=== PATIENT | female | born 1970 | race Caucasian/White ===

== ENCOUNTER 2018-09-29 07:24 | Outpatient (CLI) | payer MEDICARE, SELFPAY ==
[2018-09-29 08:54] LABS: Abs Immature Grans 0.02 k/cumm (0.0-0.09); Absolute Basophil Count 0.03 k/cumm (0.0-0.2); Absolute Lymphocyte Count 2.07 k/cumm (1.2-3.4); Absolute Monocyte Count 0.59 k/cumm (0.11-0.7); Absolute Neutrophil Count 3.94 k/cumm (1.2-6.7); Basophils % 0.4; Eosinophils % 2.9; HGB 15.3 g/dL (12.0-15.5); Immature Grans % 0.3; Lymphocytes % 30.2; Mean Corp. HGB Concentration 31.9 g/dL (32.0-36.0); Mean Corpuscular Hemoglobin 29.1 pg (27.0-33.0); Mean Corpuscular Volume 91.3 fL (80-95); Monocytes % 8.6; Neutrophils % 57.6; Platelet Count 226 x1000/uL (130-400); RBC 5.26 m/cumm (4.00-5.20); RBC Distribution Width 13.4 % (11.7-14.6); White Blood Cell Count 6.85 k/cumm (4.4-10.8)
[2018-09-29 10:21] LABS: ALT 34 U/L (12-78); AST 17 U/L (15-37); Albumin 3.6 g/dL (3.4-5.0); Alkaline Phosphatase 82 U/L (46-116); Amylase 40 U/L (25-115); Anion Gap 7.9 mmol/L (3-11); BUN 17 mg/dL (7-18); Bilirubin, Total 0.4 mg/dL (0.2-1.0); CO2 29.1 mmol/L (21.0-32.0); CREATININE 0.74 mg/dL (0.55-1.02); Calcium 9.1 mg/dL (8.5-10.1); Chloride 104 mmol/L (98-107); Glucose 91 mg/dL (70-100); Lipase 158 U/L (73-393); Potassium 4.6 mmol/L (3.5-5.1); Sodium 141 mmol/L (136-145); Total Protein 7.4 g/dL (6.4-8.2)
[2018-09-30 11:22] LABS: CA 125 6 U/mL (0-30)
== END 2018-09-29 07:44 ==
PROVIDERS: PCP Internal Medicine; Visit Provider Nurse Practitioner
DX: R63.4 Abnormal weight loss (principal); R19.07 Generalized intra-abdominal and pelvic swelling, mass and lump; R10.84 Generalized abdominal pain
CPT/HCPCS: 36415; 80053; 83690; 86304; 82150; 84443; 85025

== ENCOUNTER → 2018-10-21 00:29 | Outpatient (CLI) | payer MEDICARE, SELFPAY ==
--- NOTE | 2018-10-21 08:25 | DI.CT_ITS ---
SYMPTOMS/DIAGNOSIS: NAUSEA, VOMITING, ABDOMINAL BLOATING, R11.2, R14.0, R63.4, R10.84 CT OF THE ABDOMEN AND PELVIS: Comparison is made with April,. Images were performed from the lung bases through the ischial tuberosities after IV and oral contrast. The oral contrast extends to the level of the cecum and ascending colon. Scattered colonic diverticula are seen. There is no evidence of diverticulitis or colitis. There is no small bowel dilatation. The appendix appears normal. There is no free air or free fluid. There has been a previous abdominal wall repair. The liver, gallbladder, spleen, pancreas, adrenals and kidneys are unremarkable. The uterus has a somewhat lobulated contour consistent with small fibroids. The ovaries are unremarkable. The urinary bladder is mildly distended and unremarkable. The aorta is normal in diameter. No suspicious bony abnormalities are seen. IMPRESSION: No acute abnormality is seen. There has been no significant change from the previous exam.
[2018-10-21] MEDS: Breeza Beverage 473 ML BTL PO (09:36)
[2018-10-21] MEDS: Omnipaque 350 MG/ML 100 ML BTL IJ (09:37)
[2018-10-21] MEDS: Omnipaque 350 MG/ML 50 ML BTL IJ (09:37)
== END ==
PROVIDERS: PCP Internal Medicine; Visit Provider Nurse Practitioner
DX: R11.2 Nausea with vomiting, unspecified (principal); R14.0 Abdominal distension (gaseous); R10.84 Generalized abdominal pain; D25.9 Leiomyoma of uterus, unspecified; N32.89 Other specified disorders of bladder
CPT/HCPCS: 74177; J3490; Q9967

== ENCOUNTER 2018-10-24 13:44 | Outpatient (REF) | payer MEDICARE, SELFPAY ==
--- NOTE | 2018-10-24 12:00 | PAPFT_PTH ---
PATIENT: Kasey Cervantes LOC: [facility] U#:[id number] AGE/SX: 48/F ROOM: RE10/24/[address]: Anastacia Reynolds NP : 1970 BED: DIS: 10/24/2018 SPEC #: [id number] RECD: 10/24/18 18:06 STATUS: GOPI MOREL[place] #: [id number] JO: 10/24/18 12:[address]: Anastacia Reynolds NP DEPT: [facility] Cytology RECD BY: Anita Graff ENTERED: 10/24/18 18:06 SP TYPE: PAPFT OTHR DR: Marvin Becerra Tissues: 1 - CX/ENDOCX FOR PAP SMEARS Procedures: PAP THIN PREP/UVM Screening HPV DNA PROBE Comments: [id number]
== END 2018-10-24 14:04 ==
LOC: LBN 13:44
PROVIDERS: PCP Internal Medicine; Visit Provider Nurse Practitioner Women's Health
DX: Z12.4 Encounter for screening for malignant neoplasm of cervix (principal); Z11.51 Encounter for screening for human papillomavirus (HPV)
CPT/HCPCS: 88142; 87624

== ENCOUNTER 2018-11-05 00:13 | Outpatient (CLI) | payer MEDICARE, SELFPAY ==
--- NOTE | 2018-11-05 15:00 | DI.MAMMO_ITS ---
SYMPTOMS/DIAGNOSIS: ROUTINE SCREENING MAMMOGRAMS: Mammograms were interpreted according to the usual protocol including computer analysis with CAD system, tomosynthesis and C view imaging. There are small well-circumscribed bilateral nodules. There is no dominant mass. There are no suspicious calcifications. SUMMARY: Bilateral well-circumscribed nodular densities most certainly represent intramammary lymph nodes. Allowing for differences in positioning and technique, there has been no definite interval change when compared with the prior examination. A repeat mammographic examination in six months is recommended for further review. Category 1. Breast density category B. MQSA ASSESSMENT OF FINDINGS: Negative. Category 1. Patient will receive a letter notifying them of these results. BI-RADS category B. There are scattered areas of fibroglandular density.
--- NOTE | 2018-11-05 15:15 | DI.US_ITS ---
SYMPTOMS/DIAGNOSIS: PELVIC PAIN, FIBROIDS, R10.2 PELVIC ULTRASOUND: Pelvic ultrasound was performed transabdominally and transvaginally. Please see the accompanying data sheet for measurements of the pelvic structures. The ovaries are nonvisualized. No free fluid identified in the cul-de-sac. Myometrium is unremarkable in appearance. There is a 12 mm in diameter nabothian cyst. Endometrial stripe is about 5 mm in thickness and appears fairly homogeneous. Limited scanning of the kidneys is unremarkable. CONCLUSION: Essentially negative pelvic ultrasound. Ovaries were not visualized on this examination.
== END 2018-11-05 00:33 ==
PROVIDERS: PCP Internal Medicine; Visit Provider Nurse Practitioner Women's Health
DX: Z12.31 Encounter for screening mammogram for malignant neoplasm of breast (principal); N60.81 Other benign mammary dysplasias of right breast; N60.82 Other benign mammary dysplasias of left breast; R10.2 Pelvic and perineal pain
CPT/HCPCS: 77063; 77067; 76830; 76856

== ENCOUNTER 2019-01-12 11:59 | Emergency (ER) | payer MEDICARE, SELFPAY ==
[2019-01-12 12:03] VITALS: BP 161/95; PULSE 78; RESP 18; TEMP 36.7; O2SAT 100
[2019-01-12 12:53] LABS: Abs Immature Grans 0.01 k/cumm (0.0-0.09); Absolute Basophil Count 0.03 k/cumm (0.0-0.2); Absolute Eosinophil Count 0.19 k/cumm (0.0-0.7); Absolute Lymphocyte Count 2.37 k/cumm (1.2-3.4); Absolute Monocyte Count 0.65 k/cumm (0.11-0.7); Absolute Neutrophil Count 4.01 k/cumm (1.2-6.7); Basophils % 0.4; Eosinophils % 2.6; HGB 15.1 g/dL (12.0-15.5); Immature Grans % 0.1; Lymphocytes % 32.6; Mean Corp. HGB Concentration 32.8 g/dL (32.0-36.0); Mean Corpuscular Hemoglobin 30.3 pg (27.0-33.0); Mean Corpuscular Volume 92.2 fL (80-95); Mean Platelet Volume 10.1 fL (8.0-11.0); Neutrophils % 55.3; Platelet Count 244 x1000/uL (130-400); RBC 4.99 m/cumm (4.00-5.20); RBC Distribution Width 12.9 % (11.7-14.6); White Blood Cell Count 7.26 k/cumm (4.4-10.8)
[2019-01-12 13:04] LABS: ALT 22 U/L (12-78); AST 15 U/L (15-37); Albumin 3.6 g/dL (3.4-5.0); Alkaline Phosphatase 76 U/L (46-116); Anion Gap 7.8 mmol/L (3-11); BUN 12 mg/dL (7-18); Bilirubin, Total 0.3 mg/dL (0.2-1.0); CO2 29.2 mmol/L (21.0-32.0); CREATININE 0.72 mg/dL (0.55-1.02); Calcium 9.1 mg/dL (8.5-10.1); Chloride 103 mmol/L (98-107); Glucose 98 mg/dL (70-100); Potassium 4.3 mmol/L (3.5-5.1); Sodium 140 mmol/L (136-145); Total Protein 7.9 g/dL (6.4-8.2)
[2019-01-12 13:09] LABS: Bilirubin Small (Negative); Blood Large (Negative); Clarity Sl Cloudy; Glucose Negative (Negative); Ketones Trace mg/dL (Negative); Leukocyte Esterase Negative (Negative); Nitrite Negative (Negative); Specific Gravity 1.025 (1.005-1.025)
[2019-01-12 13:20] LABS: Bacteria Negative HPF (Negative); Crystals Negative HPF (Negative); Epithelial Cells Rare HPF (Negative); Other Cells Negative (Negative); RBC >50 (0-2); WBC 0-2 HPF (0-5)
[2019-01-12] MEDS: MORPHine 10 MG/ML VIAL 4 MG IVP (13:20)
[2019-01-12 13:21] LABS: Casts Negative LPF (Negative); Mucus Trace (Negative)
[2019-01-12] MEDS: Ondansetron 4 MG/2 ML VIAL (13:27)
[2019-01-12] MEDS: Omnipaque 350 MG/ML 100 ML BTL IJ (13:51)
--- NOTE | 2019-01-12 13:52 | DI.CT_ITS ---
SYMPTOMS/DIAGNOSIS: RIGHT LOWER QUADRANT ABDOMINAL PAIN, VAGINAL BLEEDING, WEIGHT LOSS CT OF THE ABDOMEN AND PELVIS: Comparison is made with October,. Images were performed from the lung bases through the ischial tuberosities after IV and without oral contrast. The lung bases are clear. The heart size is normal. The liver shows mild fatty infiltration. The gallbladder, spleen, pancreas, kidneys and adrenals are unremarkable. The bladder is mildly distended and unremarkable. The uterus shows a few small fibroids. The ovaries are normal in size. There is no bowel dilatation or inflammatory change. The appendix appears normal. There are scattered diverticula. There is no evidence of diverticulitis, free air or free fluid. Mesh is seen in the anterior abdominal wall related to previous hernia repair. No recurrent hernia is seen. IMPRESSION: Diverticulosis without evidence of diverticulitis. No acute abnormality.
--- NOTE | 2019-01-12 15:10 | DI.US_ITS ---
SYMPTOMS/DIAGNOSIS: VAGINAL BLEEDING PELVIC ULTRASOUND: Transabdominal and transvaginal exams were performed. Comparison is made with CT scan dated January,. The transabdominal images are quite limited due to the patient's body habitus. The fundus of the uterus is not well seen on the transvaginal images. The left ovary was unable to be visualized. It was unremarkable by CT. The uterus measures 9.4 x 4.5 x 5.4 cm. No fibroids are identified. There is a question of a fundal fibroid on the abdominal and pelvic CT. The endometrial stripe appears normal in thickness at 7.1 cm. No focal endometrial abnormality is visible. The right ovary is normal in size and shows two small adjacent cysts. There is no free fluid or hydronephrosis. IMPRESSION: Limited exam. The left ovary was not visualized. Small right ovarian cyst is seen.
--- NOTE | 2019-01-12 16:21 | W.ED.GENAD ---
Discharge Plan Disposition Patient Disposition: HOME Condition: Good Discharge Details Chief Complaint: Abd Prob Clinical Impression: Abnormal vaginal bleeding Reason For Visit: abd pain / vaginal bleeding Primary Care Provider: Marvin Becerra ED Provider: Juma Ramirez Home Meds and New Rx's Prescriptions: No Action ranitidine HCl 300 mg tablet 300 mg PO DAILY RF: 0 cannabidiol (CBD) extract 100 mg/mL solution PO DAILY RF: 0 multivitamin [Daily Multi-Vitamin] tablet 1 tab PO DAILY RF: 0 loratadine [Claritin] 10 MG tablet 10 mg PO DAILY RF: 0 albuterol sulfate 8.5 GM HFA aerosol inhaler 2 puff Inhalation Q6H PRN PRNQty: 1 RF: 0 fluoxetine 20 MG capsule 20 mg PO DAILY RF: 0 naproxen sodium [Aleve] 220 mg Tablet 440 mg RF: 0 Discharge Instructions Instructions: Dysfunctional Uterine Bleeding (ED) Additional Instructions: Please take ibuprofen 800 mg every 6 hours for your pain. Please follow-up tomorrow morning with your obstetrics shift supervisor. If you notice any worsening of your symptoms, or any new symptoms such as vomiting, diarrhea, fever, chills, shortness of breath, chest pain, numbness, weakness, or fainting , please return immediately to the emergency department for reevaluation. Please follow up with your primary care provider as soon as possible for reassessment and reevaluation. As always, it was a pleasure participating in your medical care today. Referrals: Marvin Becerra MD [Primary Care Provider] - Discharge Data Discharge Date/Time-TO BE ENTERED AT DEPARTURE: 01/12/19 16:39 Medical Decision Making This is a pleasant 48-year-old female with a past medical history of fibromyalgia, who presents today for evaluation of vaginal bleeding and mild abdominal pelvic pain. Symptoms have been present for the last 4 days, and the bleeding started last night. Physical exam demonstrates mild suprapubic tenderness, and mild abdominal tenderness. With the patient's vaginal bleeding or certainly concern for malignancy. Laboratory workup demonstrates stable hemoglobin, reassuring vital signs, CT scan demonstrates no acute process. Ovaries are normal in size, transvaginal ultrasound demonstrates limited exam, no fibroids, questionable fundal fibroid, and a normal endometrial stripe. No other significant abnormalities. Patient's pain is notably improved with Toradol. We did contact the obstetrics shift supervisor conductor/engineer, and discussed the case with her. She would like the patient to follow-up tomorrow morning at their clinic for further evaluation and potential biopsy. With reassuring vital signs, stable hemoglobin, no other M d-dimer imaging, I feel that this is reasonable. We will hold off on estrogen until she is seen by her obstetrics shift supervisor tomorrow I have extensively reviewed the treatment plan and discharge instructions with the patient and their family. I have addressed all patient concerns at this time. The patient and family was made aware of what symptoms to monitor for that would warrant a return to the emergency department. Discussed the plan with the patient and family, they demonstrate verbal understanding and agreement with our assessment and plan at this time. . CT OF THE ABDOMEN AND PELVIS: Comparison is made with October,. Images were performed from the lung bases through the ischial tuberosities after IV and without oral contrast. The lung bases are clear. The heart size is normal. The liver shows mild fatty infiltration. The gallbladder, spleen, pancreas, kidneys and adrenals are unremarkable. The bladder is mildly distended and unremarkable. The uterus shows a few small fibroids. The ovaries are normal in size. There is no bowel dilatation or inflammatory change. The appendix appears normal. There are scattered diverticula. There is no evidence of diverticulitis, free air or free fluid. Mesh is seen in the anterior abdominal wall related to previous hernia repair. No recurrent hernia is seen. IMPRESSION: Diverticulosis without evidence of diverticulitis. No acute abnormality. PELVIC ULTRASOUND: Transabdominal and transvaginal exams were performed. Comparison is made with CT scan dated January,. The transabdominal images are quite limited due to the patient's body habitus. The fundus of the uterus is not well seen on the transvaginal images. The left ovary was unable to be visualized. It was unremarkable by CT. The uterus measures 9.4 x 4.5 x 5.4 cm. No fibroids are identified. There is a question of a fundal fibroid on the abdominal and pelvic CT. The endometrial stripe appears normal in thickness at 7.1 cm. No focal endometrial abnormality is visible. The right ovary is normal in size and shows two small adjacent cysts. There is no free fluid or hydronephrosis. IMPRESSION: Limited exam. The left ovary was not visualized. Small right ovarian cyst is seen. HPI General Date/Time Provider Initiated Documentation: 01/12/19 12:00. HPI Narrative: This is a 48-year-old female with a past medical history of PE/DVT, tubal ligation, fibromyalgia, who presents today for evaluation of vaginal bleeding. The patient states that for the last 4 days she has had mild right lower quadrant abdominal pain, as well as pelvic pain. However starting last night the patient's pain worsened, and she started developing notable vaginal bleeding. She describes the pain as a crampy-like sensation. Pain is located in the suprapubic region, no significant radiation at this time. She denies any vomiting, diarrhea, chest pain or shortness of breath. She does admit to a 60 pound weight loss over the last year, which she states is unintentional. She does admit to a tubal ligation in the past, but denies any other significant OB/gynecologic surgery. Patient has no other complaints at this time. Related Data Home Medications Medication Instructions Recorded Confirmed albuterol sulfate 2 puff INHALATION Q6H PRN PRN #1 01/16/15 01/12/19 hfa.aer.ad loratadine [Claritin] 10 mg PO DAILY 01/16/15 01/12/19 fluoxetine 20 mg PO DAILY 07/27/15 01/12/19 cannabidiol (CBD) 100 mg/mL oral mg PO DAILY ml 10/24/18 11/26/18 solution ranitidine 300 mg tablet 300 mg PO DAILY 10/24/18 01/12/19 multivitamin tablet 1 tab PO DAILY 11/26/18 01/12/19 naproxen sodium [Aleve] 440 mg 01/12/19 Previous Rx's Medication Instructions Recorded albuterol sulfate 2 puff INHALATION Q6H PRN PRN #1 01/16/15 hfa.aer.ad Allergies Allergy/AdvReac Type Severity Reaction Status Date / Time acetaminophen [From Tylenol] AdvReac Mild Nausea Unverified 01/12/19 12:09 clonazepam [From Klonopin] AdvReac Dizziness/L Unverified 01/12/19 12:09 ightheade codeine AdvReac Nausea Unverified 01/12/19 12:09 gabapentin AdvReac Dizziness/L Unverified 01/12/19 12:09 ightheade General Stated Complaint: Abd Prob DAVID: 3 Review of Systems Review of Systems All systems reviewed & are unremarkable except as noted in HPI and below PFSH Social History what type of physical activity do you participate in: none Smoking and Tabacco status: Former Tobacco Use alcohol intake: current alcohol intake frequency: a few times a week substance use type: marijuana Female Reproductive History Menstrual control method: permanent sterilization History History 2 Para 2 Hx # Term Pregnancies Multiple births Hx # Pregnancies Ectopic pregnancies AB induced Hx Number of Living Children AB spontaneous Exam Narrative Exam Narrative: 1.Const: Well-nourished, mildly obese, 2.Eyes: PERRL, no conjunctival injection, and symmetrical lids. 3.ENT: Atraumatic external nose and ears. Moist MM. Neck: Symmetric, trachea midline, No thyromegaly. 4.CVS: +S1/S2, No murmurs or gallops. Peripheral pulses 2+ and equal in all extremities. Brisk capillary refill in all extremities. 5.RESP: Unlabored respiratory effort. Clear to auscultation bilaterally. No wheezes rales or rhonchi 6.GI: Soft, Nontender/Nondistended, No hepatosplenomegaly. No guarding or rebound. Mild suprapubic tenderness. No guarding or rebound. Pelvic exam was performed with female nurse Elisabet at bedside, pelvic exam was difficult to visualize the cervix secondary to the length of her vaginal vault, however palpation demonstrates notable firm component on the left lateral aspect. No cervical motion tenderness. Notable blood in the vaginal vault. No significant pain on bimanual exam. 7.MSK: Normocephalic/Atraumatic, Extremities w/o deformity or ttp No cyanosis or clubbing, Normal movement of all extremities 8.Skin: Warm, Dry. No rashes or lesions. 9.Neuro: health center manager II-XII grossly intact. Sensation grossly intact, no focal neurologic deficits. 10.Psych: (AAO) x3. Appropriate mood and affect Course Vital Signs Temperature 36.7 C 01/12/19 12:03 Pulse 78 01/12/19 12:03 Respiratory Rate 18 01/12/19 12:03 Blood Pressure 161/95 H 01/12/19 12:03 Pulse Oximetry 100 01/12/19 12:03 Temperature 36.7 C 01/12/19 12:03 Pulse 78 01/12/19 12:03 Respiratory Rate 18 01/12/19 12:03 Respiratory Effort 01/12/19 12:08 Blood Pressure 161/95 H 01/12/19 12:03 Pulse Oximetry 100 01/12/19 12:03 Oxygen Delivery Method Room Air 01/12/19 12:03 Oxygen Flow Rate 0 01/12/19 12:03 Pain Level 10 01/12/19 12:03 Lab/Test Results Lab/Test Results: Laboratory Tests Range/Units 01/12/19 01/12/19 01/12/19 12:45 12:45 12:50 WBC (4.4-10.8) k/cumm 7.26 RBC (4.00-5.20) m/cumm 4.99 Hgb (12.0-15.5) g/dL 15.1 Hct (36.0-46.0) % 46.0 MCV (80-95) fL 92.2 MCH (27.0-33.0) pg 30.3 MCHC (32.0-36.0) g/dL 32.8 RDW (11.7-14.6) % 12.9 Plt Count (130-400) x1000/uL 244 MPV (8.0-11.0) fL 10.1 Immature Gran % 0.1 Neutrophils % 55.3 Lymphocytes % 32.6 Monocytes % 9.0 Eosinophils % 2.6 Basophils % 0.4 Absolute Neutrophils (1.2-6.7) k/cumm 4.01 Absolute Lymphocytes (1.2-3.4) k/cumm 2.37 Absolute Monocytes (0.11-0.7) k/cumm 0.65 Absolute Eosinophils (0.0-0.7) k/cumm 0.19 Absolute Basophils (0.0-0.2) k/cumm 0.03 Sodium (136-145) mmol/L 140 Potassium (3.5-5.1) mmol/L 4.3 Chloride (98-107) mmol/L 103 Carbon Dioxide (21.0-32.0) mmol/L 29.2 Anion Gap (3-11) mmol/L 7.8 BUN (7-18) mg/dL 12 Creatinine (0.55-1.02) mg/dL 0.72 Estimated GFR/1.73 m2 (mL/min/1.73m2) >= 60.00 Glucose (70-100) mg/dL 98 Calcium (8.5-10.1) mg/dL 9.1 Total Bilirubin (0.2-1.0) mg/dL 0.3 AST (15-37) U/L 15 ALT (12-78) U/L 22 Alkaline Phosphatase (46-116) U/L 76 Total Protein (6.4-8.2) g/dL 7.9 Albumin (3.4-5.0) g/dL 3.6 Urine Color (Yellow) Hawkins Urine Clarity Sl cloudy Urine pH (5-8) 7.0 Ur Specific [place] (1.005-1.025) 1.025 Urine Protein (Negative) mg/dL 100 H Urine Ketones (Negative) mg/dL Trace H Urine Blood (Negative) Large H Urine Nitrite (Negative) Negative Urine Bilirubin (Negative) Small H Urine Urobilinogen (Up TO 0.2) EU/dL 1.0 H Ur Leukocyte Esterase (Negative) Negative Urine RBC (0-2) >50 H Urine WBC (0-5) HPF 0-2 Ur Epithelial Cells (Negative) HPF Rare Urine Crystals (Negative) HPF Negative Urine Bacteria (Negative) HPF Negative Urine Casts (Negative) LPF Negative Urine Mucus (Negative) Trace Urine Other (Negative) Negative Ur Culture Indicated? No Urine Glucose (Negative) mg/dL Negative
[2019-01-12] MEDS: Ketorolac 30 MG/ML VIAL IVP (16:25)
[2019-01-12 18:33] VITALS: BP 130/84; PULSE 62; RESP 16; TEMP 36.7; O2SAT 94
[2019-01-12 21:21] LABS: C & S Indicated? Yes
== END 2019-01-12 16:39 | disposition home or self-care (01) ==
PROVIDERS: Emergency Provider Student in an Organized Health Care Education/Training Program; PCP Internal Medicine
DX: N93.9 Abnormal uterine and vaginal bleeding, unspecified (principal); R10.2 Pelvic and perineal pain; N83.201 Unspecified ovarian cyst, right side
CPT/HCPCS: 36415; 80053; 96374; 96375; 99285; 74177; 76830; 81003; 81015; 85025; 87086; 99284; J1885; J2270; J2405; J3490

== ENCOUNTER 2019-01-20 08:53 | Outpatient (CLI) | payer MEDICARE, SELFPAY ==
[2019-01-20 10:27] LABS: HCT 44.4 % (36.0-46.0); HGB 14.4 g/dL (12.0-15.5); Mean Corp. HGB Concentration 32.4 g/dL (32.0-36.0); Mean Corpuscular Hemoglobin 30.4 pg (27.0-33.0); Mean Corpuscular Volume 93.9 fL (80-95); Platelet Count 211 x1000/uL (130-400); RBC 4.73 m/cumm (4.00-5.20); White Blood Cell Count 7.46 k/cumm (4.4-10.8)
[2019-01-20 11:11] LABS: Anion Gap 6.7 mmol/L (3-11); BUN 21 mg/dL (7-18); CO2 30.3 mmol/L (21.0-32.0); CREATININE 0.88 mg/dL (0.55-1.02); Calcium 9.3 mg/dL (8.5-10.1); Chloride 104 mmol/L (98-107); Glucose 93 mg/dL (70-100); Potassium 4.1 mmol/L (3.5-5.1); Sodium 141 mmol/L (136-145)
== END 2019-01-20 09:13 ==
PROVIDERS: PCP Internal Medicine; Visit Provider Obstetrics & Gynecology Gynecology
DX: N93.8 Other specified abnormal uterine and vaginal bleeding (principal); Z01.818 Encounter for other preprocedural examination
CPT/HCPCS: 36415; 80048; 85027; 86850; 86900; 86901

== ENCOUNTER 2019-01-21 09:50 | Day surgery (SDC) | payer MEDICARE, SELFPAY ==
[2019-01-20 09:05] VITALS: BP 121/81; PULSE 103; RESP 18; TEMP 37.5; O2SAT 92
[2019-01-21] VITALS (7 sets, daily range): BP systolic 108–145; BP diastolic 51–90; PULSE 59–96; RESP 12–19; TEMP 36.4–36.7; O2SAT 95–99
[2019-01-21] MEDS: Lactated Ringers 1,000 ML 125 ML IV (12:13)
[2019-01-21] MEDS: Bupivacaine 0.5% Pres-Free 30 ML VIAL (12:41)
--- NOTE | 2019-01-21 12:51 | ENDOMET_PTH ---
PATIENT: Kasey Cervantes LOC: [facility] U#:[id number] AGE/SX: 48/F ROOM: RE01/21/[address]: Leti Loja : 1970 BED: DIS: 01/21/2019 SPEC #: [id number] RECD: 01/21/19 18:04 STATUS: GOPI RE #: [id number] JO: 01/21/19 12:[address]: Leti Loja DEPT: Surgical Specimen RECD BY: Anita Graff ENTERED: 01/21/19 18:05 SP TYPE: Endomet OTHR DR: Marvin Becerra Tissues: 1 - ENDOMETRIUM BX/ANN Procedures: GROSS AND MICRO LEVEL 4 Comments: [id number]
[2019-01-21] MEDS: Ketorolac 30 MG/ML VIAL IVP ×2 (13:15→13:25)
--- NOTE | 2019-01-21 13:25 | W.PM.DSUDISC ---
Discharge Plan Disposition Patient Disposition: HOME Condition: Fair Discharge Details Reason For Visit: Hysteroscopy and cervical dilation and curretage Attending Provider: Leti Loja Primary Care Provider: Marvin Becerra Home Meds and New Rx's Prescriptions: No Action ranitidine HCl 300 mg tablet 300 mg PO DAILY RF: 0 cannabidiol (CBD) extract 100 mg/mL solution 250 mg PO DAILY RF: 0 multivitamin [Daily Multi-Vitamin] tablet 1 tab PO DAILY RF: 0 oxycodone 5 mg tablet 5 mg PO Q8H MDD 3 PRN (Reason: pain) Qty: 10 RF: 0 loratadine [Claritin] 10 MG tablet 10 mg PO DAILY RF: 0 albuterol sulfate 8.5 GM HFA aerosol inhaler 2 puff Inhalation Q6H PRN PRNQty: 1 RF: 0 naproxen sodium [Aleve] 220 mg Tablet 440 mg PO BID PRN PRNRF: 0 Discharge Instructions Stand Alone Forms: [facility] Post Gynecology Surgery, Yousif Lundy (DSU) Activity:: Activity as Tolerated Shower/Bathe:: 24 hours Diet:: As Tolerated Discharge Orders Discharge Orders: Discharge Order (Routine); Ordered 01/21/19 Ordered By: Leti Loja DS: Diagnosis Discharge Diagnosis (1) Abnormal uterine bleeding (AUB): Status: Acute (2) Hx of dilation and curettage: Status: Acute (3) History of hysteroscopy: Status: Acute
--- NOTE | 2019-01-22 07:43 | W.PM.OP ---
Date of service: 01/22/19 Time of Service: 07:44 Operative Note DATE OF PROCEDURE: 01/21/19 PRE-OP DIAGNOSIS: Abnormal uterine bleeding POST-OP DIAGNOSIS: same PROCEDURE: Diagnostic hysteroscopy with uterine curettage SURGEON: Leti Loja ANESTHESIA: other (See anesthesia note in EMR) ESTIMATED BLOOD LOSS: 0 PATHOLOGY: other (Endometrial curettings to pathology) COMPLICATIONS: None Patient was transported to: PACU Patient's condition: stable Indications: 48-year-old perimenopausal female with recent episode of heavy uterine bleeding significant pain and cramping. Findings: Normal appearing uterine cavity no intracavitary filling defects. [place] appeared smooth. There was dark red blood coming from the left tubal ostia with the initial installation of normal saline. That ceased within 2-3 minutes of the hysteroscopy. Both tubal ostia appeared normal Procedure Description: Patient was taken to the operating room and she was placed in the dorsal lithotomy position in yellowfin stirrups in a neurologically neutral position. SCDs were placed timeout was performed and patient was prepped and draped in usual sterile fashion. A bivalve Graves speculum was placed into the vagina the cervix was infiltrated with 1 cc of quarter percent Marcaine without epinephrine and grasped with a single-tooth tenaculum. Paracervical block was performed at the 4 and 8:00 vaginal cervix interface bilaterally. cervix was then sequentially dilated to a maximum of 11 Estr[place]. the diagnostic hysteroscope was then placed in the vagina to the cervix into the uterine cavity with normal saline as a distention medium. The overall impression was that of a normal appearing endometrium. The h hysteroscope was removed the patient's uterus a narrow banjo curette was then used to sequentially curetted all 4 quadrants of the uterine cavity and a small amount of tissue was obtained. A second inspection of the uterine cavity with the hysteroscope was performed and the curetted sites were hemostatic. There are no detached fragments of endometrial lining present within the uterine cavity at the completion of the procedure. Instruments removed from the patient's vagina tenaculum site was hemostatic patient was placed in the dorsal supine position awakened from anesthesia and transported to recovery area in stable condition all sponge lap needle counts correct x2
== END 2019-01-21 15:23 | disposition home or self-care (01) ==
PROVIDERS: PCP Internal Medicine; Visit Provider Obstetrics & Gynecology Gynecology
PROC: 0UDB8ZZ Extraction of Endometrium, Via Natural or Artificial Opening Endoscopic (ICD-10-PCS; CPT 58558; principal; 2019-01-21 12:00)
DX: N93.9 Abnormal uterine and vaginal bleeding, unspecified (principal); N84.0 Polyp of corpus uteri
CPT/HCPCS: 58558; 88305; J1100; J2405; J3010

== ENCOUNTER 2019-01-27 15:57 | Observation (INO) | payer MEDICARE, SELFPAY ==
[2019-01-27 16:29] VITALS: BP 150/101; PULSE 74; RESP 18; TEMP 36.3; O2SAT 96
[2019-01-27 17:33] LABS: Abs Immature Grans 0.01 k/cumm (0.0-0.09); Absolute Basophil Count 0.05 k/cumm (0.0-0.2); Absolute Lymphocyte Count 2.82 k/cumm (1.2-3.4); Absolute Monocyte Count 0.82 k/cumm (0.11-0.7); Absolute Neutrophil Count 4.19 k/cumm (1.2-6.7); Basophils % 0.6; Eosinophils % 2.5; HCT 45.3 % (36.0-46.0); HGB 15.1 g/dL (12.0-15.5); Immature Grans % 0.1; Lymphocytes % 34.9; Mean Corp. HGB Concentration 33.3 g/dL (32.0-36.0); Mean Corpuscular Hemoglobin 30.3 pg (27.0-33.0); Mean Corpuscular Volume 90.8 fL (80-95); Mean Platelet Volume 10.1 fL (8.0-11.0); Monocytes % 10.1; Neutrophils % 51.8; Platelet Count 254 x1000/uL (130-400); RBC 4.99 m/cumm (4.00-5.20); RBC Distribution Width 12.6 % (11.7-14.6); White Blood Cell Count 8.09 k/cumm (4.4-10.8)
[2019-01-27] MEDS: Normal Saline 1,000 ML 30 ML IV (17:38)
[2019-01-27] MEDS: oxyCODONE 5 MG TAB PO (17:50)
[2019-01-27 18:31] LABS: ALT 36 U/L (12-78); AST 20 U/L (15-37); Albumin 3.7 g/dL (3.4-5.0); Alkaline Phosphatase 68 U/L (46-116); Anion Gap 9.5 mmol/L (3-11); BUN 11 mg/dL (7-18); Bilirubin, Total 0.4 mg/dL (0.2-1.0); CO2 27.5 mmol/L (21.0-32.0); CREATININE 0.75 mg/dL (0.55-1.02); Chloride 103 mmol/L (98-107); Glucose 92 mg/dL (70-100); Potassium 3.9 mmol/L (3.5-5.1); Sodium 140 mmol/L (136-145); Total Protein 7.6 g/dL (6.4-8.2)
[2019-01-27] MEDS: DOXYCYCLINE 100 MG in Normal Saline 100 ML IVPB (18:31)
[2019-01-27] MEDS: Ondansetron 4 MG/2 ML VIAL IVP (19:43)
[2019-01-27] MEDS: MetroNIDAZOLE 500 MG/100 ML BAG 100 MG IVPB (20:08)
[2019-01-27 20:18] VITALS: BP 109/69; PULSE 75; RESP 18; TEMP 37.5; O2SAT 94
[2019-01-27 23:44] VITALS: BP 110/77; PULSE 65; RESP 19; TEMP 35.6; O2SAT 96
[2019-01-28] MEDS: oxyCODONE 5 MG TAB PO ×2 (02:53→11:28)
[2019-01-28 03:40] VITALS: BP 113/71; PULSE 65; RESP 18; TEMP 35.9; O2SAT 98
[2019-01-28] MEDS: MetroNIDAZOLE 500 MG/100 ML BAG 100 MG IVPB (05:43)
[2019-01-28] MEDS: DOXYCYCLINE 100 MG in Normal Saline 100 ML IVPB (06:46)
[2019-01-28 07:14] VITALS: BP 121/85; PULSE 67; RESP 19; TEMP 35.9; O2SAT 98
--- NOTE | 2019-01-28 07:45 | PDOC.CMIN ---
- If Service Date Differs Date of service: 01/28/19 Time of Service: 07:45 Care Management Initial Assess REASON FOR HOSPITALIZATION:: Endometritis, Post Operative PAST MEDICAL HISTORY/PAST SURGICAL HISTORY:: History of hysteroscopy (Acute). Abnormal uterine bleeding (AUB) (Acute). Asthma. Back pain. Depression. Dyspepsia. Fibromyalgia. PE. Personal history of DVT (deep vein thrombosis). Tobacco dependence. Urinary incontinence. Hx of dilation and curettage (Acute). Open Carpal Tunnel release. Tubal Ligation, Laparoscopic PREVIOUS FUNCTIONAL STATUS/SOCIAL/FAMILY SUPPORTS:: Kasey resides with her [place] in [facility] along with her two dogs. She states that they have been for ten years. She reports that she has two older children whom reside in [facility] Kasey reports that she is on disability and has been for the past 2-3 years and that she is independent at baseline, drives, and manages ADL's. CURRENT FUNCTIONAL STATUS:: Currently Kasey is lying in bed. She becomes tearful through discussion stating that her and her are seperated and he will be moving in April. ADVANCE DIRECTIVES:: None on file Has patient been provided with information about the portal?: Yes Did the patient sign up for the portal?: No CODE STATUS:: Full Code INSURANCE COVERAGE / FINANCIAL ISSUES:: Medicare CURRENT HOME/COMMUNITY SERVICES/EQUIPMENT:: Currently Kasey has no services or medical equipment in the community. She reports that she has been working with [employer] and has gone to the jail in November. PRIMARY CARE PHYSICIAN:: Dr. Becerra POTENTIAL DISCHARGE NEEDS:: F/U appointment with Dr. Mcintosh. Assistance withi payment for PO Antibiotics - Kasey does not have MCR part D PATIENT/FAMILY EDUCATION NEEDS:: Review DC instructions, any limitations, and ongoing DC planning discussion. Discuss 'Ask Me Three' ANTICIPATED BARRIERS TO DISCHARGE:: No prescription coverage TRANSPORTATION:: Via private vehicle with Santiago PLAN:: Kasey will return home with no anticipated services. CM to assist with obtaining medications. Kasey will F/U with Dr. Wu and plan of care as prescribed. [place] to transport.
--- NOTE | 2019-01-28 07:52 | INITIAL_ITS ---
- If Service Date Differs Date of service: 01/28/19 Time of Service: 07:45 Care Management Initial Assess REASON FOR HOSPITALIZATION:: Endometritis, Post Operative PAST MEDICAL HISTORY/PAST SURGICAL HISTORY:: History of hysteroscopy (Acute). Abnormal uterine bleeding (AUB) (Acute). Asthma. Back pain. Depression. Dyspepsia. Fibromyalgia. PE. Personal history of DVT (deep vein thrombosis). Tobacco dependence. Urinary incontinence. Hx of dilation and curettage (Acute). Open Carpal Tunnel release. Tubal Ligation, Laparoscopic PREVIOUS FUNCTIONAL STATUS/SOCIAL/FAMILY SUPPORTS:: Kasey resides with her [place] in [facility] along with her two dogs. She states that they have been for ten years. She reports that she has two older children whom reside in [facility] Kasey reports that she is on disability and has been for the past 2-3 years and that she is independent at baseline, drives, and manages ADL's. CURRENT FUNCTIONAL STATUS:: Currently Kasey is lying in bed. She becomes tearful through discussion stating that her and her are seperated and he will be moving in April. ADVANCE DIRECTIVES:: None on file Has patient been provided with information about the portal?: Yes Did the patient sign up for the portal?: No CODE STATUS:: Full Code INSURANCE COVERAGE / FINANCIAL ISSUES:: Medicare CURRENT HOME/COMMUNITY SERVICES/EQUIPMENT:: Currently Kasey has no services or medical equipment in the community. She reports that she has been working with [employer] and has gone to the senior care in November. PRIMARY CARE PHYSICIAN:: Dr. Becerra POTENTIAL DISCHARGE NEEDS:: F/U appointment with Dr. Mcintosh. Assistance withi payment for PO Antibiotics - Kasey does not have MCR part D PATIENT/FAMILY EDUCATION NEEDS:: Review DC instructions, any limitations, and ongoing DC planning discussion. Discuss 'Ask Me Three' ANTICIPATED BARRIERS TO DISCHARGE:: No prescription coverage TRANSPORTATION:: Via private vehicle with Santiago PLAN:: Kasey will return home with no anticipated services. CM to assist with obtaining medications. Kasey will F/U with Dr. Wu and plan of care as prescribed. [place] to transport.
[2019-01-28] MEDS: Loratidine 10 MG TAB PO (08:24)
[2019-01-28] MEDS: Albuterol HFA 8 GM 60 PUFF INH IH (08:25)
[2019-01-28 10:50] VITALS: BP 120/77; PULSE 74; RESP 19; TEMP 36.9; O2SAT 96
--- NOTE | 2019-01-28 13:30 | CHAPLAIN ---
Kasey was in bed when I visited. She was pleasant and responded to questions but did not seem interested in a longer visit.
--- NOTE | 2019-01-28 14:05 | W.PM.DS.N ---
Date of service: 01/28/19 Time of Service: 14:05 DS: Diagnosis Discharge Diagnosis (1) History of hysteroscopy: Status: Acute Asessment and Plan: 01/21/2019 for abnormal uterine bleeding (2) Hx of dilation and curettage: Status: Acute Asessment and Plan: Secretory endometrium pathology results from D&C. (3) Pelvic pain: Status: Acute Asessment and Plan: Patient patient presented to the emergency department earlier in the month and complained of pelvic pain secondary to heavy uterine bleeding. Pain was also associated with back discomfort with referred pain to her medial thighs. Discharge Plan Disposition Patient Disposition: HOME Condition: Fair Discharge Details Reason For Visit: ENDOMETRITIS, POST OPERATIVE Admit Date/Time: 01/27/19 16:00 Admit Provider: Joel Mcintosh Attending Provider: Joel Mcintosh Primary Care Provider: Marvin Becerra Hospital Course Hospital Course: Patient underwent a diagnostic hysteroscopy with D&C for abnormal uterine bleeding on 01/21/2019. Procedure was uncomplicated she was discharged home on the same day with reports of increasing pain not relieved with pain medication including nonsteroidal anti-inflammatories. She presented to [facility] on 01/27/2019 with report of subjective fevers and heavier than expected bleeding after D&C she also reported malodorous component to her vaginal discharge. On admission she was afebrile her WBC was normal and exam was significant for mild uterine tenderness. A bimanual exam had been deferred. She received IV antibiotics including doxycycline and metronidazole which were continued in oral form upon discharge. Home Meds and New Rx's Prescriptions: No Action ranitidine HCl 300 mg tablet 300 mg PO DAILY RF: 0 cannabidiol (CBD) extract 100 mg/mL solution 250 mg PO DAILY RF: 0 multivitamin [Daily Multi-Vitamin] tablet 1 tab PO DAILY RF: 0 oxycodone 5 mg tablet 5 mg PO Q8H MDD 3 PRN (Reason: pain) Qty: 14 RF: 0 doxycycline hyclate 100 mg capsule 100 mg PO BID Qty: 14 RF: 0 metronidazole 500 mg tablet 500 mg PO BID Qty: 14 RF: 0 tramadol 50 mg tablet 50 mg PO Q12H PRN (Reason: pain) Qty: 10 RF: 0 loratadine [Claritin] 10 MG tablet 10 mg PO DAILY RF: 0 albuterol sulfate 8.5 GM HFA aerosol inhaler 2 puff Inhalation Q6H PRN PRNQty: 1 RF: 0 naproxen sodium [Aleve] 220 mg Tablet 440 mg PO BID PRN PRNRF: 0 Discharge Instructions Additional Instructions: Take your antibiotics as directed. Nothing in the vagina no spence tampons or intercourse. Uses tramadol sparingly along with ibuprofen. Plan at this time is to follow-up in the office on 327 to discuss treatment plan for uterine discomfort. Call the office at [phone] if you develop a fever greater than 100.1 orally or have increased malodorous vaginal discharge or heavy bleeding. Activity:: Activity as Tolerated Equipment/Supplies:: No Equipment Needed Diet:: As Tolerated Discharge Orders Discharge Orders: Discharge Order (Routine); Ordered 01/28/19 Ordered By: Leti Loja Exam Const General: no acute distress Nutritional Appearance: overweight Orientation: alert, awake and oriented x3 Resp Effort & Inspection: normal respiratory effort Auscultation: clear to auscultation bilaterally Cardio Palpation: normal PMI Rate: regular rate Heart Sounds: S1 normal and S2 normal GI Inspection: normal to inspection Palpation: soft and no hepatosplenomegaly Other: Focal prep tenderness with palpation in the suprapubic region no referred pain no guarding or rebound. General: deferred Back/Spine/Pelvis Back: no CVA tenderness Skin General skin exam: no rashes or lesions noted Neuro Motor: muscle tone normal throughout Extrem General: full ROM and normal capillary refill Psych Appearance: grossly normal Mental Status: mental status grossly normal Speech and Movement: speech and movement normal Mood: dysthymic mood (Having marital conflicts. Is planning a legal separation) Affect: dysphoric affect (Tearful when describing her interactions with her ) Attitude: cooperative Thought Process: normal Thought Content: normal Insight: insight good DS: Data Vitals/I&O Vitals and I&O: Vital Signs Temperature 98.4 F 01/28/19 10:50 Temperature Source Skin 01/28/19 10:50 Pulse 74 01/28/19 10:50 Pulse Rhythm Regular 01/27/19 20:51 Respiratory Rate 01/28/19 10:50 Respiratory Effort Non-Labored 01/27/19 20:51 Respiratory Depth Normal 01/27/19 20:51 Respiratory Pattern Normal 01/27/19 20:51 Blood Pressure 120/77 01/28/19 10:50 Pulse Oximetry 96 01/28/19 10:50 Oxygen Delivery Method Room Air 01/28/19 10:50 Oxygen Flow Rate 0 01/28/19 10:50 Pain Level 6 01/28/19 11:28 Intake & Output 01/27/19 01/28/19 01/28/19 23:59 11:59 23:59 Intake Total 200 / 200 640 / 880 240 / 880 Output Total 300 / 300 500 / 500 Balance -100 / -100 140 / 380 240 / 380 Weight 259 lb 0.69 oz Intake: IV 200 / 200 200 / 200 Oral 440 / 680 240 / 680 Output: Urine 300 / 300 500 / 500 Other: Urine Color Yellow Yellow Urine Appearance Clear Clear Urine Odor Normal Normal Voiding Methods Toilet Toilet Labs on day of discharge: Labs from last 24 hours 01/27/19 01/27/19 16:00 16:00 WBC 8.09 RBC 4.99 Hgb 15.1 Hct 45.3 MCV 90.8 MCH 30.3 MCHC 33.3 RDW 12.6 Plt Count 254 MPV 10.1 Immature Gran % 0.1 Neutrophils % 51.8 Lymphocytes % 34.9 Monocytes % 10.1 Eosinophils % 2.5 Basophils % 0.6 Absolute Neutrophils 4.19 Absolute Lymphocytes 2.82 Absolute Monocytes 0.82 H Absolute Eosinophils 0.20 Absolute Basophils 0.05 Sodium 140 Potassium 3.9 Chloride 103 Carbon Dioxide 27.5 Anion Gap 9.5 BUN 11 Creatinine 0.75 Estimated GFR/1.73 m2 >= 60.00 Glucose 92 Calcium 9.0 Total Bilirubin 0.4 AST 20 ALT 36 Alkaline Phosphatase 68 Total Protein 7.6 Albumin 3.7 PFSH Medical History History of hysteroscopy (Acute) Abnormal uterine bleeding (AUB) (Acute) Asthma Back pain Depression Dyspepsia Fibromyalgia PE Personal history of DVT (deep vein thrombosis) Tobacco dependence Urinary incontinence Surgical History Hx of dilation and curettage (Acute) Open Carpal Tunnel release Tubal Ligation, Laparoscopic Social History Smoking/Tobacco Use Status: Former Tobacco Use Alcohol Intake: current Alcohol Intake frequency: a few times a week Drug use: Daily Substance use type: marijuana What type of physical activity do you participate in: none Do you feel safe in your relationship?: Yes Female Reproductive History Menstrual control method: permanent sterilization History History 2 Para 2 Hx # Term Pregnancies Multiple births Hx # Pregnancies Ectopic pregnancies AB induced Hx Number of Living Children AB spontaneous
--- NOTE | 2019-01-28 14:41 | PDOC.CMDIS ---
- If Service Date Differs Date of service: 01/28/19 Time of Service: 14:41 LACE Index Scoring Tool - Questions: Length of Stay (in days): 1 Acuity (Admit via E.D.?): No E.D. Visits: 2 - Answers: Total Score: 3 Risk of Readmission: Low Risk Care Management Discharge Reason for Hospitalization: Endometritis, Post Operative Discharge Plan: Kasey will return home today with no services. has contacted [facility] and they have approved payment of $40 to [facility] [employer] [facility] for her antibiotics. CM notified Kasey that she will need to work with either [facility] or [facility] in regards to obtaining a prescription plan. notified Dr. Sarah Grove of the above. [facility] will transport her. [facility], notified of the above as well. Patient/Family Education Needs: Review DC instructions, any limitations, and discuss 'Ask Me Three'
--- NOTE | 2019-01-28 14:47 | CMDISCH_ITS ---
- If Service Date Differs Date of service: 01/28/19 Time of Service: 14:41 LACE Index Scoring Tool - Questions: Length of Stay (in days): 1 Acuity (Admit via E.D.?): No E.D. Visits: 2 - Answers: Total Score: 3 Risk of Readmission: Low Risk Care Management Discharge Reason for Hospitalization: Endometritis, Post Operative Discharge Plan: Kasey will return home today with no services. has contacted [facility] and they have approved payment of $40 to [employer] for her antibiotics. CM notified Kasey that she will need to work with either [facility] or [facility] in regards to obtaining a prescription plan. notified Dr. Sarah Grove of the above. [facility] will transport her. [facility], notified of the above as well. Patient/Family Education Needs: Review DC instructions, any limitations, and discuss 'Ask Me Three'
== END 2019-01-28 15:37 | disposition home or self-care (01) ==
PROVIDERS: Obstetrics & Gynecology; Admitting Provider Obstetrics & Gynecology Gynecology; PCP Internal Medicine; Visit Provider Obstetrics & Gynecology Gynecology
DX: R10.2 Pelvic and perineal pain (principal); Z98.890 Other specified postprocedural states; R50.9 Fever, unspecified; Z59.6 Low income
CPT/HCPCS: 80053; 99238; 85025; G0378; J2405

== ENCOUNTER 2023-06-25 13:34 | Outpatient (REF) | payer MEDICARE, MEDICAID, SELFPAY ==
[2023-06-25 16:55] LABS: TSH (W/Ref FT4) 1.66 uIU/mL (0.36-3.74); Vitamin B12 270 pg/mL (193-986)
== END 2023-06-25 13:35 | disposition home or self-care (01) ==
LOC: NCHCN 13:34
PROVIDERS: PCP Internal Medicine; Visit Provider Nurse Practitioner Family
DX: R41.3 Other amnesia (principal)
CPT/HCPCS: 82607; 84443

== ENCOUNTER 2023-12-02 16:32 | Outpatient (REF) | payer MEDICARE, MEDICAID, SELFPAY ==
--- NOTE | 2023-12-02 12:30 | PAPFT_PTH ---
PATIENT: Kasey Cervantes LOC: [facility]#:[id number] AGE/SX: 53/F ROOM: RE12/02/[address]: Allie Saldivar : 1970 BED: DIS: 12/02/2023 SPEC #: [id number] RECD: 12/03/23 12:57 STATUS: GOPI RECarlie #: [id number] JO: 12/02/23 12:[address]: Allie Saldivar DEPT: [facility] Cytology RECD BY: Anita Graff ENTERED: 12/03/23 12:58 SP TYPE: PAPFT OTHR DR: Marvin Becerra Tissues: 1 - CX/ENDOCX FOR PAP SMEARS Procedures: PAP THIN PREP/UVM Screening HPV DNA PROBE Comments: [id number]
[2023-12-02 22:03] LABS: Abs Immature Grans 0.01 10^3/uL (0.0-0.06); Absolute Basophil Count 0.07 10^3/uL (0.0-0.2); Absolute Eosinophil Count 0.46 10^3/uL (0.0-0.7); Absolute Lymphocyte Count 2.82 10^3/uL (1.2-3.4); Absolute Monocyte Count 0.66 10^3/uL (0.1-0.8); Absolute Neutrophil Count 2.84 10^3/uL (1.2-6.7); Eosinophils % 6.7; HCT 44.7 % (36.0-46.0); HGB 13.9 g/dL (11.2-15.7); Immature Grans % 0.1; Lymphocytes % 41.1; MCH 29.3 pg (27.0-33.0); MCHC 31.1 % (32.0-36.0); MCV 94 fL (80-95); MPV 10.5 fL (8.0-11.0); Monocytes % 9.6; Neutrophils % 41.5; Platelet Count 254 10^3/uL (130-400); RBC 4.75 10^6/uL (3.93-5.22); RDW-SD 42.1 fL; WBC 6.86 10^3/uL (4.4-10.8)
[2023-12-02 22:22] LABS: Hemoglobin A1C 5.2 % (<5.7)
[2023-12-02 22:47] LABS: ALT 35 U/L (14-59); AST 18 U/L (15-37); Albumin 3.5 g/dL (3.4-5.0); Alkaline Phosphatase 67 U/L (46-116); BUN 22 mg/dL (7-18); Bilirubin, Total 0.3 mg/dL (0.2-1.0); CREATININE 0.8 mg/dL (0.55-1.02); Calcium 8.7 mg/dL (8.5-10.1); Calculated LDL 125 mg/dL (<100); Chloride 105 mmol/L (98-107); Cholesterol 214 mg/dL (<200); Estimated GFR 86.96 (mL/min/1.73m2); Glucose 74 mg/dL (74-106); HDL Cholesterol 61 mg/dL (40-60); Potassium 4.7 mmol/L (3.5-5.1); Sodium 143 mmol/L (136-145); TSH 1.14 uIU/mL (0.36-3.74); Total Protein 7.2 g/dL (6.4-8.2); Triglyceride 142 mg/dL (<150)
[2023-12-02 22:55] LABS: Vitamin D 25 Total 24.1 ng/mL (30-100)
[2023-12-02 23:17] LABS: FREE T4 0.75 ng/dL (0.76-1.46)
[2023-12-03 18:00] LABS: T3,Free 4.4 pg/mL (2.8-5.3)
[2023-12-03 19:43] LABS: HIV-1/2 Ag & Ab Screen Negative (Negative)
[2023-12-03 19:48] LABS: Hepatitis C Ab w Rflx HCV PCR Negative (Negative)
== END 2023-12-02 16:33 | disposition home or self-care (01) ==
LOC: NCHCN 16:32
PROVIDERS: PCP Nurse Practitioner Family; Visit Provider Nurse Practitioner Family
DX: Z12.4 Encounter for screening for malignant neoplasm of cervix (principal); Z11.51 Encounter for screening for human papillomavirus (HPV)
CPT/HCPCS: 80053; 80061; 82306; 86803; 87389; 88142; 83036; 84439; 84443; 84481; 85025; 87624

== ENCOUNTER 2025-03-30 15:22 | Outpatient (REF) | payer MEDICARE, MEDICAID, SELFPAY ==
[2025-03-30 21:12] LABS: Abs Immature Grans 0.02 10^3/uL (0.0-0.06); Absolute Basophil Count 0.06 10^3/uL (0.0-0.2); Absolute Eosinophil Count 0.22 10^3/uL (0.0-0.7); Absolute Lymphocyte Count 2.58 10^3/uL (1.2-3.4); Absolute Monocyte Count 0.67 10^3/uL (0.1-0.8); Absolute Neutrophil Count 3.47 10^3/uL (1.2-6.7); Basophils % 0.9 %; Eosinophils % 3.1 %; HCT 44.5 % (36.0-46.0); HGB 14.2 g/dL (11.2-15.7); Immature Grans % 0.3 %; Lymphocytes % 36.8 %; MCH 29.6 pg (27.0-33.0); MCHC 31.9 % (32.0-36.0); MCV 93 fL (80-95); MPV 10.7 fL (8.0-11.0); Monocytes % 9.5 %; Neutrophils % 49.4 %; Platelet Count 231 10^3/uL (130-400); RDW 12.4 % (11.7-14.6); RDW-SD 42.5 fL; WBC 7.02 10^3/uL (4.4-10.8)
[2025-03-30 21:25] LABS: Iron 55 ug/dL (50-170); Total Iron Binding Capacity 335 ug/dL (250-450); Transferrin Sat 16 % (15-50)
[2025-03-30 21:28] LABS: Hemoglobin A1C 5.5 % (<5.7)
[2025-03-30 21:54] LABS: ALT 36 U/L (14-59); AST 20 U/L (15-37); Albumin 3.4 g/dL (3.4-5.0); Alkaline Phosphatase 81 U/L (46-116); Anion Gap 0.9 mmol/L (3-11); BUN 15 mg/dL (7-18); Bilirubin, Total 0.3 mg/dL (0.2-1.0); CO2 35.1 mmol/L (21.0-32.0); CREATININE 0.7 mg/dL (0.55-1.02); Calcium 9.2 mg/dL (8.5-10.1); Calculated LDL 132 mg/dL (<100); Chloride 105 mmol/L (98-107); Cholesterol 217 mg/dL (<200); Estimated GFR 100.81 (mL/min/1.73m2); Ferritin 64 ng/mL (8-252); Glucose 111 mg/dL (74-106); HDL Cholesterol 56 mg/dL (>or=50); Potassium 4.4 mmol/L (3.5-5.1); Sodium 141 mmol/L (136-145); Total Protein 7.1 g/dL (6.4-8.2); Triglyceride 146 mg/dL (<150); Vitamin D 25 Total 34 ng/mL (30-100)
[2025-03-30 22:06] LABS: Bilirubin Negative (Negative); Blood Negative (Negative); Clarity Clear (Clear); Glucose Negative (Negative); Ketones Negative (Negative); Leukocyte Esterase Negative (Negative); Nitrite Negative (Negative); Urobilinogen 0.2 mg/dL (Up to 0.2); pH 6.5 (5-8)
[2025-03-30 22:45] LABS: Microalb ug/mg Crea 4.8 ug/mg Cr
== END 2025-03-30 15:23 | disposition home or self-care (01) ==
LOC: NCHCN 15:22
PROVIDERS: PCP Nurse Practitioner Family; Visit Provider Nurse Practitioner Family
DX: E66.9 Obesity, unspecified (principal); K76.0 Fatty (change of) liver, not elsewhere classified; E55.9 Vitamin D deficiency, unspecified; I10 Essential (primary) hypertension; R07.9 Chest pain, unspecified
CPT/HCPCS: 80053; 80061; 82306; 81003; 82043; 82570; 82728; 83036; 83540; 83550; 85025